=== PATIENT | male | born 1990 | race Caucasian/White ===

== ENCOUNTER 2019-03-07 18:54 | Emergency (ER) | payer OTHER ==
[~2019-03-07] VITALS: Ht 188 cm; Wt 93.6 kg
--- NOTE | 2019-03-07 19:47 | REP ---
Four views left hand: 03/07/2019. Indication: Left hand trauma. Comparison: None. Findings: There is no evidence of acute fracture, subluxation or dislocation. Osseous alignment is anatomic. Impression: No acute fracture. Electronically Signed by Juanpablo Adorno DO 03/07/2019 07:39 P
[2019-03-07 20:18] VITALS: BP 138/62
== END 2019-03-07 20:20 | disposition home or self-care (01) ==
LOC: M ED 18:54
DX: S60.142A Contusion of left ring finger with damage to nail, initial encounter (principal); X58.XXXA Exposure to other specified factors, initial encounter; Y92.89 Other specified places as the place of occurrence of the external cause

== ENCOUNTER 2020-02-08 20:37 | Emergency (ER) | payer OTHER ==
[~2020-02-08] VITALS: Ht 188 cm; Wt 96.4 kg
[2020-02-08 20:37] VITALS: BP 145/80
[2020-02-08] MEDS ORDERED: BACITRACIN OINTMENT 30GM TUBE TOP STA (21:06)
[2020-02-08] MEDS ORDERED: BACI500O21 TOP (21:09)
== END 2020-02-08 21:45 | disposition home or self-care (01) ==
LOC: M ED 20:37
DX: T20.22XA Burn of second degree of lip(s), initial encounter (principal); T22.231A Burn of second degree of right upper arm, initial encounter; T20.13XA Burn of first degree of chin, initial encounter; X04.XXXA Exposure to ignition of highly flammable material, initial encounter; T31.0 Burns involving less than 10% of body surface; Y92.009 Unspecified place in unspecified non-institutional (private) residence as the place of occurrence of the external cause; Y93.9 Activity, unspecified; Y99.9 Unspecified external cause status; Z91.018 Allergy to other foods